=== PATIENT | male | born 1960 | race Caucasian/White ===

== ENCOUNTER 2021-01-15 12:06 | Emergency (ER) | payer BC ==
[~2021-01-15] VITALS: Ht 180.3 cm; Wt 72.6 kg
[2021-01-15] MEDS ORDERED: ALL DAY ALLERGY10 M3 PO (16:09)
[2021-01-15] MEDS ORDERED: CLINDAMYCIN HC150 MG PO (16:09)
[2021-01-15] MEDS ORDERED: TRIAMCINOLONE A80 GM TOP (16:09)
[2021-01-15] MEDS ORDERED: INTESTINEX680 M1 PO (16:09)
== END 2021-01-15 16:14 ==
LOC: ER 12:06
DX: L03.115 Cellulitis of right lower limb (principal)